=== PATIENT | female | born 1985 | race Caucasian/White ===

== ENCOUNTER 2021-01-13 19:33 | Emergency (ER) | payer OTHER ==
[~2021-01-13] VITALS: Ht 166.4 cm; Wt 61.2 kg
[2021-01-13 19:43] VITALS: Ht 166.4 cm; Wt 61.2 kg
[2021-01-13] MEDS ORDERED: LITHIUM CARBON150 MG (19:45)
[2021-01-13] MEDS ORDERED: PROAIR HFA8.5 G1 INH ×2 (19:45→20:13)
[2021-01-13 21:14] LABS: BASOPHILS 0.5 % (0-2); EOSINOPHILS 1.6 % (0-7); HEMATOCRIT 47.9 % (36.0-48.0); HEMOGLOBIN 16.2 g/dL (12-16); LYMPHOCYTES 28.6 % (15-50); MCHC 33.9 g/dL (31.0-37.0); MCV 97.4 fL (80.0-100.0); MEAN PLATELET VOLUME 9.8 fL (7.4-10.4); MONOCYTES 6.4 % (2-11); NEUTROPHILS 62.9 % (40-80); RBC 4.92 10x6/uL (4.00-5.40); RDW 13.2 % (11.5-14.5)
[2021-01-13 21:16] LABS: PLATELET COUNT 247 10x3/uL (130-400)
[2021-01-13 21:19] LABS: BACTERIA FEW HPF (<MOD); BILIRUBIN NEGATIVE (NEGATIVE); HCG URINE NEGATIVE (NEGATIVE); KETONE TRACE mg/dL (< 1+); NITRITE NEGATIVE (NEGATIVE); PH 5.5 (5.0-8.0); SQUAMOUS EPITHELIAL 1 HPF (0-4); UROBILINOGEN 2 mg/dL (< 2); WHITE CELLS - URINE <1 HPF (0-4)
[2021-01-13 21:23] LABS: CALC OSMOLALITY 280 mosm/kg (275-300); CALCIUM 9.5 mg/dL (8.5-10.1); CARBON DIOXIDE 24.8 mmol/L (21.0-32.0); CHLORIDE - SERUM 104 mmol/L (98-107); CREATININE - SERUM 0.9 mg/dL (0.6-1.3); GLUCOSE 111 mg/dL (74-106); POTASSIUM - SERUM 3.4 mmol/L (3.5-5.1); SODIUM 141 mmol/L (136-145); UREA NITROGEN 10 mg/dL (7-18); eGFR NON AFRICAN AMERICAN 75 mL/min (90-120)
[2021-01-13 21:28] LABS: UDS - AMPHET NEGATIVE QUAL (NEGATIVE); UDS - BARB NEGATIVE QUAL (NEGATIVE); UDS - BENZO NEGATIVE QUAL (NEGATIVE); UDS - COCAINE NEGATIVE QUAL (NEGATIVE); UDS - OPIATE NEGATIVE QUAL (NEGATIVE); UDS - PCP NEGATIVE QUAL (NEGATIVE); UDS - THC POSITIVE QUAL (NEGATIVE)
[2021-01-13 21:35] LABS: ALBUMIN 4.6 g/dL (3.4-5.0); ALKALINE PHOSPHATASE 87 U/L (30-120); ALT (SGPT) 32 U/L (10-68); PRO BNP 19 pg/mL (0-125); PROTEIN - SERUM 8.3 g/dL (6.4-8.2); THYROID STIMULATING HORMONE 2.81 uIU/mL (0.36-3.74)
[2021-01-13] MEDS ORDERED: FLOVENT HFA 11012 GM INH (22:30)
[2021-01-13 23:12] VITALS: BP 121/82
== END 2021-01-13 23:13 | disposition home or self-care (01) ==
LOC: D.ER 19:33
PROVIDERS: Family Medicine
DX: J45.909 Unspecified asthma, uncomplicated (principal); R06.02 Shortness of breath; Z72.0 Tobacco use